=== PATIENT | male | born 1950 | race American Indian/Alaskan Native ===

== ENCOUNTER 2022-03-07 13:25 | Emergency (ER) | payer OTHER, MEDICARE ==
[2022-03-07 13:29] VITALS: BP 132/90
--- NOTE | 2022-03-07 16:00 | Emergency Department Report ---
HPI - General Chief Complaint: Weakness Time Seen by Provider: 03/07/22 15:19 - HPI HPI: Room 11 The patient is 71-year-old male present with a chief complaint of leg pain and shaking. Patient states he had episode this morning that lasted a few minutes where he began to "feel funny" and his legs will shake. When asked about what he means when he states he was feeling funny the patient complains of bilateral lower extremity pain but appears to have difficulty describing the quality of the pain. Patient states his legs will shake intermittently for a few minutes but has since resolved. Patient denied ever having chest pain, shortness of breath, dizziness, headache or palpitations. Patient states since he has been in the emergency department he has been asymptomatic. Of note the patient states he had a similar episode approximately 3 weeks ago and went to his primary physicians at [facility] and had a series of studies but eventually was discharged home. ED Past Medical Hx - Past Medical History Hx Hypertension: Yes Hx Diabetes: Yes Additional medical history: glaucoma, cholesterol - Surgical History Past Surgical History?: No - Family History Family history: no significant - Social History Smoking Status: Current Some Day Smoker (1 pack/day) Substance Use Type: None (Denies illicit drug use), Alcohol (Occasional) ED Review of Systems ROS: Stated complaint: WEAKNESS Other details as noted in HPI Constitutional: no symptoms reported Eyes: denies: eye pain ENT: denies: throat pain Respiratory: denies: shortness of breath Cardiovascular: denies: chest pain, palpitations Endocrine: no symptoms reported Gastrointestinal: denies: abdominal pain Genitourinary: denies: dysuria Musculoskeletal: myalgia. denies: back pain Neurological: denies: headache Physical Exam - Physical Exam Vital Signs: Vital Signs 03/07/22 03/07/22 03/07/22 13:27 13:38 13:52 Temperature 97.8 F Pulse Rate 88 Blood Pressure 132/90 [Left] O2 Sat by Pulse 98 100 Oximetry Physical Exam: GENERAL: The patient is well-developed well-nourished male sitting in chair not appearing to be in acute distress. [] HEENT: Normocephalic. Atraumatic. Extraocular motions are intact. Patient has moist mucous membranes. NECK: Supple. Trachea midline CHEST/LUNGS: Clear to auscultation. There is no respiratory distress noted. HEART/CARDIOVASCULAR: Regular. There is no tachycardia. There is no gallop rub or murmur. ABDOMEN: Abdomen is soft, nontender. Patient has normal bowel sounds. There is no abdominal distention. SKIN: There is no rash. There is no edema. There is no diaphoresis. NEURO: The patient is awake, alert, and oriented. The patient is cooperative. The patient has no focal neurologic deficits. The patient has normal speech and gait. GCS 15 MUSCULOSKELETAL: There is mild tenderness to palpation of the left calf. There is no evidence of acute injury. ED Course Vital Signs 03/07/22 03/07/22 03/07/22 13:27 13:38 13:52 Temperature 97.8 F Pulse Rate 88 Blood Pressure 132/90 [Left] O2 Sat by Pulse 98 100 Oximetry - Reevaluation(s) Reevaluation #1: 03/07/22 17:06 Patient states he does not wish to stay to have blood drawn and will be reevaluated at another time. Patient states he would like to leave the hospital AGAINST MEDICAL ADVICE ED Medical Decision Making - Radiology Data Radiology results: report reviewed (Bilateral lower extremity Dopplers), image reviewed (Bilateral lower extremity Doppler) [facility] [address] [place] [address] Vascular Lab Report Signed Patient: JAKE VAIL MR#: [id number] 5 : 1950 Acct:[id number] Age/Sex: 71 / M ADM Date: 03/07/22 Loc: ED Attending Dr: Ordering Physician: GUY ZUNIGA MD Date of Service: 03/07/22 Procedure(s): VL venous duplex LE BIL Accession Number(s): [id number] cc: GUY ZUNIGA MD DUPLEX DOPPLER LOWER EXTREMITY VEINS, BILATERAL INDICATION / CLINICAL INFORMATION: Leg pain. TECHNIQUE: Duplex doppler imaging was performed through the veins of both lower extremities using venous compression and other maneuvers. COMPARISON: None available. FINDINGS: RIGHT COMMON FEMORAL VEIN: Negative. RIGHT FEMORAL VEIN: Negative. RIGHT POPLITEAL VEIN: Negative. RIGHT CALF VEINS: Negative. LEFT COMMON FEMORAL VEIN: Negative. LEFT FEMORAL VEIN: Negative. LEFT POPLITEAL VEIN: Negative. LEFT CALF VEINS: Negative. ADDITIONAL FINDINGS: None. IMPRESSION: 1. No sonographic evidence for DVT in either lower extremity. Signer Name: Ashkan Alvarez MD Signed: 03/07/2022 4:45 PM Workstation Name: [id number] Transcribed By: SB Dictated By: ASHKAN ALVAREZ MD Electronically Authenticated By: ASHKAN ALVAREZ MD Signed Date/Time: 03/07/221644 DD/ 43 TD/TT: - Differential Diagnosis Electrolyte abnormality, anxiety, hypothyroidism, DVT Critical care attestation.: If time is entered above; I have spent that time in minutes in the direct care of this critically ill patient, excluding procedure time. ED Disposition Clinical Impression: Leg pain Disposition: 07 LEFT AGAINST MEDICAL ADVICE Is pt being admited?: No Does the pt Need Aspirin: No Condition: Undetermined Time of Disposition: 17:06 (Patient leaving AMA)
--- NOTE | 2022-03-07 16:49 | Vascular Lab Report ---
DUPLEX DOPPLER LOWER EXTREMITY VEINS, BILATERAL INDICATION / CLINICAL INFORMATION: Leg pain. TECHNIQUE: Duplex doppler imaging was performed through the veins of both lower extremities using gil ous compression and other maneuvers. COMPARISON: None available. FINDINGS: RIGHT COMMON FEMORAL VEIN: Negative. RIGHT FEMORAL VEIN: Negative. RIGHT POPLITEAL VEIN: Negative. RIGHT CALF VEINS: Negative. LEFT COMMON FEMORAL VEIN: Negative. LEFT FEMORAL VEIN: Negative. LEFT POPLITEAL VEIN: Negative. LEFT CALF VEINS: Negative. ADDITIONAL FINDINGS: None. IMPRESSION: 1. No sonographic evidence for DVT in either lower extremity. Signer Name: Ashkan Butler MD Signed: 03/07/2022 4:45 PM Workstation Name: [id number]
== END 2022-03-07 17:26 | disposition left against medical advice (07) ==
LOC: ED 13:25
DX: M79.606 Pain in leg, unspecified (principal); I10 Essential (primary) hypertension; E11.9 Type 2 diabetes mellitus without complications; F17.200 Nicotine dependence, unspecified, uncomplicated
CPT/HCPCS: 93970; 99284